=== PATIENT | male | born 1970 ===

== ENCOUNTER 2019-01-10 17:07 | Emergency (ER) | payer BC ==
[2019-01-10 17:18] VITALS: BP 113/76
--- NOTE | 2019-01-10 17:25 | UC ---
Skin Complaint HPI - HPI Summary HPI Summary: 48-year-old male presents with tick bite to the right forearm. States discovered earlier today. Still attached. Unsure of how long it has been attached however tick is not engorged. Denies fever, chills, flu-like illness, fatigue, myalgias, joint pain or fever. - History of Current Complaint Chief Complaint: UCSkin Time Seen by Provider: 01/10/19 17:23 Stated Complaint: TICK Pain Intensity: 0 - Allergy/Home Medications Allergies/Adverse Reactions: Allergies Allergy/AdvReac Type Severity Reaction Status Date / Time No Known Allergies Allergy Verified 01/10/19 17:15 Home Medications: Home Medications Cyanocobalamin (Vitamin B-12) [Vitamin B-12] 500 mcg PO DAILY 01/10/19 [History Confirmed 01/10/19] PMH/Surg Hx/FS Hx/Imm Hx Previously Healthy: Yes - Denies significant PMH - Surgical History Surgical History: Yes Surgery Procedure, Year, and Place: ADNOIDS A CHILD - Family History Known Family History: Positive: Non-Contributory - Social History Occupation: Employed Full-time Lives: With Family Alcohol Use: Occasionally Substance Use Type: None Smoking Status (MU): Never Smoked Tobacco Review of Systems All Other Systems Reviewed And Are Negative: Yes Constitutional: Negative: Fever, Chills Skin: Positive: Other - See HPI Respiratory: Positive: Negative Cardiovascular: Positive: Negative Gastrointestinal: Positive: Negative Genitourinary: Positive: Negative Musculoskeletal: Negative: Arthralgia, Myalgia Neurological: Positive: Negative Is Patient Immunocompromised?: No Physical Exam - Summary Physical Exam Summary: GENERAL APPEARANCE: Well developed, well nourished, alert and cooperative, and appears to be in no acute distress. CARDIAC: Normal S1 and S2. No S3, S4 or murmurs. Rhythm is regular. There is no peripheral edema, cyanosis or pallor. Extremities are warm and well perfused. Capillary refill is less than 2 seconds. Peripheral pulses intact. LUNGS: Clear to auscultation without rales, rhonchi, wheezing or diminished breath sounds. ABDOMEN: Positive bowel sounds. Soft, nondistended, nontender. No guarding or rebound. No masses or hepatosplenomegally. MUSKULOSKELETAL: ROM intact to all extremities. No joint erythema or tenderness. Normal muscular development. Normal gait. BACK: Examination of the spine reveals normal gait and posture, no spinal deformity or tenderness, decreased range of motion or muscular spasm. EXTREMITIES: Embedded, non-engorged nymphal deer tick to the right mid forearm with mild erythema at the site of the bite. SKIN: Skin normal color, texture and turgor. Triage Information Reviewed: Yes Vital Signs: Initial Vital Signs Temp 98.2 F 01/10/19 17:13 Pulse 54 01/10/19 17:13 Resp 18 01/10/19 17:13 BP 113/76 01/10/19 17:13 Pulse Ox 99 01/10/19 17:13 Vital Signs Reviewed: Yes Course/Dx - Course Course Of Treatment: 48-year-old male presents with tick bite to the right forearm. States discovered earlier today. Still attached. Unsure of how long it has been attached however tick is not engorged. Denies fever, chills, flu-like illness, fatigue, myalgias, joint pain or fever. Afebrile. VSS. Patient had embedded, non -engorged nymphal deer tick to the right mid forearm with mild erythema at the site of the bite. Tick was completely removed by myself using a Tick Twister. Discussed with patient that he did not meet criteria for antibiotic prophylaxis. Counseled on signs and symptoms of Lyme disease and recommending watchful waiting. He is to return here or follow up with PCP if symptoms of Lyme develop. Verbalizes understanding and agrees with POC. - Differential Diagnoses - Skin Complaint Differential Diagnoses: Local Allergic Reaction, Tick Born Illness - Diagnoses Provider Diagnosis: Tick bite of right forearm Discharge - Sign-Out/Discharge Documenting (check all that apply): Patient Departure All imaging exams completed and their final reports reviewed: No Studies - Discharge Plan Condition: Stable Disposition: HOME Patient Education Materials: Tick Bite (ED) Referrals: Arthur Garcia MD [Primary Care Provider] - Additional Instructions: Ticks transmit infection only after they have attached and then taken a blood meal from their new host. A tick that has not attached cannot not pass any infection. Since the deer tick that transmits Lyme disease typically feeds for more than 36 hours before transmitting the organisim that causes Lyme disease, the risk of acquiring Lyme disease from an tick bite is extremely small, even in an area where the disease is common. There is no benefit of blood testing for Lyme disease at the time of the tick bite because even people who become infected will not have a positive blood test until approximately two to six weeks after the tick bite. To try to avoid getting bitten by a tick, you can: * Wear shoes, long-sleeved shirts, and long pants when you go outside. Keep ticks away from your skin by tucking your pants into your socks. * Wear light colors so you can spot any ticks that get on your clothes. * Wear bug spray or cream that contains DEET. (Do not use DEET on babies younger than 2 months.) On your clothes and gear, you can use bug repellents that have a chemical called "permethrin." * Shower within 2 hours of being outdoors if you think you have been in an area where there are ticks. * Put dry clothes briefly (for about 4 minutes) in a dryer after being outdoors. * Check your clothes and body for ticks after being outdoors. Be sure to check your scalp, waist, armpits, groin, and backs of your knees. Check your children , too. After a tick bite, you will need to monitor for signs of Lyme disease over the nexter several weeks even if you have been given antibiotics to prevent the infection. Seek immediate medical attention if you develop a bullseye rash, fever, flu-like symptoms including headache, stiff neck, fatigue, muscle aches, joint pain or swelling. - Billing Disposition and Condition Condition: STABLE Disposition: Home
== END 2019-01-10 17:33 | disposition home or self-care (01) ==
LOC: UCEAST 17:07
DX: S50.861A Insect bite (nonvenomous) of right forearm, initial encounter (principal); W57.XXXA Bitten or stung by nonvenomous insect and other nonvenomous arthropods, initial encounter; Y92.9 Unspecified place or not applicable
CPT/HCPCS: 99211; G0463

== ENCOUNTER 2019-01-16 10:47 | Emergency (ER) | payer BC ==
[2019-01-16 11:09] VITALS: BP 106/73
--- NOTE | 2019-01-16 11:14 | UC ---
Skin Complaint HPI - HPI Summary HPI Summary: 48 yo male presents with symptoms s/p tick bite. He tells me that about 1 week ago he sustained a tick bite to his right forearm. He was seen here and the tick was removed and was not engorged. He estimates that the tick was attached between 24-30 hours. Yesterday he began to feel fatigue, general body aches, and had a "low grade fever" Tmax 100F that resolved with advil. He is concerned about lyme disease. He has not noticed any rash around the tick bite site or elsewhere on his body. Denies dizziness, sinus symptoms, sore throat, cough, rash, SOB, chest pain, abdominal pain, n/v. - History of Current Complaint Chief Complaint: UCSkin Time Seen by Provider: 01/16/19 11:13 Stated Complaint: TICK BITE FLU LIKE SYMPTOMS Hx Obtained From: Patient Onset/Duration: Sudden Onset Onset Severity: Mild Current Severity: Mild Pain Intensity: 2 Pain Scale Used: 0-10 Numeric - Allergy/Home Medications Allergies/Adverse Reactions: Allergies Allergy/AdvReac Type Severity Reaction Status Date / Time No Known Allergies Allergy Verified 01/16/19 11:10 PMH/Surg Hx/FS Hx/Imm Hx - Additional Past Medical History Additional PMH: Vitamin B12 def - Surgical History Surgical History: Yes Surgery Procedure, Year, and Place: ADNOIDS A CHILD - Family History Known Family History: Positive: Non-Contributory - Social History Occupation: Employed Full-time Lives: With Family Alcohol Use: Occasionally Substance Use Type: None Smoking Status (MU): Never Smoked Tobacco Review of Systems All Other Systems Reviewed And Are Negative: Yes Constitutional: Positive: Fever - low grade, Fatigue, Other - Body aches Skin: Positive: Negative Eyes: Positive: Negative ENT: Positive: Negative Respiratory: Positive: Negative Cardiovascular: Positive: Negative Gastrointestinal: Positive: Negative Neurovascular: Positive: Negative Neurological: Positive: Negative Psychological: Positive: Negative Physical Exam - Summary Physical Exam Summary: GENERAL: NAD. WDWN. No pain distress. SKIN: No rashes, sores, lesions, or open wounds. HEENT: Head: AT/NC Eyes: EOM intact. Conjunctiva clear without inflammation or discharge. Ears: Hearing grossly normal. TMs intact, no bulging, erythema, or edema. Nose: Nasal mucosa pink and moist. NTTP maxillary and frontal sinus. Throat: Posterior oropharynx without exudates, erythema, or tonsillar enlargement. Uvula midline. NECK: Supple. Nontender. No lymphadenopathy. CHEST: CTAB. No r/r/w. No accessory muscle use. Breathing comfortably and in no distress. CV: RRR. Without m/r/g. Pulses intact. Cap refill <2seconds NEURO: Alert. PSYCH: Age appropriate behavior. Triage Information Reviewed: Yes Vital Signs: Initial Vital Signs Temp 98 F 01/16/19 11:06 Pulse 78 01/16/19 11:06 Resp 16 01/16/19 11:06 BP 106/73 01/16/19 11:06 Pulse Ox 100 01/16/19 11:06 Vital Signs Reviewed: Yes Course/Dx - Course Course Of Treatment: He is well appearing, afebrile, and exam is WNL. He has not had an EM rash. Discussed with pt that his symptoms could be early signs of lyme disease or could be unrelated to the tick bite and due to a viral illness or suggestive subjective symptoms s/p tick bite surrounding lyme disease transmission. I educated him about lyme disease, transmission, and serologic testing for lyme - likely would not show positive for 4-6 weeks s/p tick bite. He is going out of town for 2 weeks and would like an rx for doxycycline for lyme disease, but will not take it if his symptoms resolve. Will take the anbx if he develops an EM rash or if his symptoms continue. - Diagnoses Provider Diagnosis: Tick bite, Body aches, Fatigue Discharge - Sign-Out/Discharge Documenting (check all that apply): Patient Departure All imaging exams completed and their final reports reviewed: No Studies - Discharge Plan Condition: Stable Disposition: HOME Prescriptions: DOXYcycline CAP(*) [DOXYcycline 100MG CAP(*)] 100 mg PO BID #28 cap Patient Education Materials: Lyme Disease (ED), Tick Bite (ED) Referrals: Arthur Garcia MD [Primary Care Provider] - Additional Instructions: If you develop a fever, shortness of breath, chest pain, new or worsening symptoms - please call your PCP or go to the ED immediately. As discussed, your exam was normal today. You did have a tick bite 1 week ago and are having fatigue, body aches, and headache. This could be a viral illness unrelated to the tick bite or could be early signs of lyme disease. --- Blood testing for lyme disease generally will not show up positive for 4-6 weeks after a tick bite, therefore testing you today would not be helpful. --- I have prescribed the 2 week course of doxycycline, if your symptoms continue or if you develop the bull's eye rash, I recommend that you start taking the medication. - Billing Disposition and Condition Condition: STABLE Disposition: Home - Attestation Statements Provider Attestation: I was available for consult. This patient was seen by the ELIN. The patient was not presented to , seen by or examined by dc -Gabrielle Roberto MD
== END 2019-01-16 11:37 | disposition home or self-care (01) ==
LOC: UCEAST 10:47
DX: T63.481A Toxic effect of venom of other arthropod, accidental (unintentional), initial encounter (principal); Y92.9 Unspecified place or not applicable; R53.83 Other fatigue; M79.10 Myalgia, unspecified site
CPT/HCPCS: 99212; G0463